=== PATIENT | female | born 1960 | race African-American/Black ===

== ENCOUNTER 2018-05-20 17:50 | Emergency (ER) | payer BC, MEDICAID, OTHER ==
[~2018-05-20] VITALS: Ht 160 cm; Wt 65.0 kg
[2018-05-20] MEDS ORDERED: ONDANSETRON ODT 4 MG PO ONE (18:30)
[2018-05-20] MEDS ORDERED: ONDANSETRON ODT 4 MG ONE (18:41)
[2018-05-20] MEDS ORDERED: LISINOPRIL 20 MG TABLET ONE (19:29)
[2018-05-20] MEDS ORDERED: LISINOPRIL 20 MG TABLET PO ONE (19:30)
[2018-05-20 21:05] VITALS: BP 178/127
== END 2018-05-20 21:07 | disposition home or self-care (01) ==
LOC: ED 21:01
DX: F19.129 Other psychoactive substance abuse with intoxication, unspecified (principal); F41.9 Anxiety disorder, unspecified; I10 Essential (primary) hypertension; R10.9 Unspecified abdominal pain; R11.2 Nausea with vomiting, unspecified
CPT/HCPCS: 99284; Q0162